=== PATIENT | male | born 1940 | race Caucasian/White ===

== ENCOUNTER 2019-03-04 15:01 | Outpatient (CLI) | payer MEDICARE ==
--- NOTE | 2019-03-04 16:18 | MRI ---
MRI BRAIN NONCONTRAST: 03/04/19 HISTORY: 78-year-old male with G30.1, Alzheimer's disease with late onset. W19.XXXA, fall. G93.40, encephalop athy, unspecified. FINDINGS: The ventricles are normal in size and configuration. There is no restricted diffusion, midline shift or any other mass effect, recent intraaxial hemorrhage, or extraaxial fluid collection. There is a moderate degree of T2-hyperintensities in the cerebral white matter consistent with chronic ischemic white matter changes due to microvascular atherosclerosis. There is diffuse age-appropriate brain par enchymal volume loss. There are bilateral mastoid effusions. IMPRESSION: 1. Moderate chronic ischemic white matter changes, and diffuse involutional changes, not unusual for age. 2. Otherwise negative. 3. Bilateral mastoid effusions. 4. No acute intracranial findings. jn[] POS: [facility]
== END 2019-03-04 15:02 | disposition home or self-care (01) ==
LOC: BICMRI 15:01
PROVIDERS: ATTEND Family Medicine
DX: G30.1 Alzheimer's disease with late onset (principal); G93.40 Encephalopathy, unspecified; I67.82 Cerebral ischemia; G93.6 Cerebral edema; W19.XXXA Unspecified fall, initial encounter
CPT/HCPCS: 70551

== ENCOUNTER 2019-03-25 13:59 | Inpatient (IN) | payer MEDICARE ==
[2019-03-25 15:39] LABS: #Eosinphils 0.1 thou/uL (0.0-0.7); #Lymphocytes 1.4 thou/uL (1.20-3.40); #Monocytes 1.5 thou/uL (0.11-0.59); #Neutrophils 9.7 thou/uL (1.40-6.50); %Basophils 0.1 % (0.0-1.0); %Eosinophils 0.7 % (0.0-10.0); %Lymphocytes 10.6 % (21.0-51.0); %Neutrophils 76.5 % (42.0-75.0); Hemoglobin 14.9 g/dL (14.0-18.0); Mean Corpuscular HGB CONC 33.3 g/dL (32.0-36.0); Mean Corpuscular Hemoglobin 29.8 pg (27.0-31.0); Mean Corpuscular Volume 89.5 fL (78.0-98.0); Mean Platelet Volume 6.9 fL (7.4-10.4); Platelet Count 266 thou/uL (130-400); RBC Distribution Width 12.9 % (11.5-14.5); White Blood Cell (WBC) Count 12.7 thou/uL (4.8-10.8)
[2019-03-25 15:59] LABS: ALT (SGPT) 8 U/L (8-55); AST (SGOT) 11 U/L (5-34); Albumin 3.6 g/dL (3.4-4.8); Alkaline Phosphatase 78 U/L (40-150); Anion Gap 9 mmol/L (10-20); BUN (Urea Nitrogen) 28 mg/dL (8.4-25.7); Bilirubin, Total 0.7 mg/dL (0.2-1.2); Calc. Creatinine Clearance 0 mL/min (70-130); Calcium 9.7 mg/dL (7.8-10.44); Carbon Dioxide 30 mmol/L (23-31); Chloride 104 mmol/L (98-107); Estimated GFR-MDRD 50; Glucose 121 mg/dL (83-110); Potassium 4.2 mmol/L (3.5-5.1); Protein, Total 6.6 g/dL (5.8-8.1); Sodium 139 mmol/L (136-145)
--- NOTE | 2019-03-25 16:00 | ULT ---
Exam: Left lower extremity venous ultrasound with Doppler HISTORY: Swelling. Edema. Ken: None TECHNIQUE: Grayscale, color flow, Doppler imaging and spectral wave form left lower extremity venous system FINDINGS: There is partial compressibility of the common femoral vein. There is lack of compressibility in the femoral vein, popliteal vein. Partial compressibility of the posterior tibial vein. Absence of throughout the right lower extremity deep venous system IMPRESSION: Deep vein thrombus involving the common femoral vein down to the posterior tibial vein..
[2019-03-25] MEDS ORDERED: ISOVUE-370 76%-LOCM 1 ML ONE (16:01)
[2019-03-25 16:40] LABS: INR-International Normal Ratio 1.3; PTT 30.8 SEC (22.9-36.1); Prothrombin Time 16.2 SEC (12.0-14.7)
[2019-03-25] MEDS ORDERED: Enoxaparin Sodium 80 MG/0.8 ML SYRINGE ONE (18:21)
--- NOTE | 2019-03-25 18:23 | CT ---
CT OF ABDOMEN AND PELVIS PERFORMED WITH CONTRAST ENHANCEMENT: 03/25/19 HISTORY: Abdominal pain. The lung bases are clear. The liver and spleen show no focal abnormalities. The spleen is 13.2 cm in length. The pancreas and g allbladder regions are unremarkable. Both the right and left adrenal glands are mildly hyperplastic. Right and left kidneys show some dony ical scarring. No obstruction. No significant periaortic or mesenteric adenopathy. CT OF PELVIS PERFORMED WITH CONTRAST ENHANCEMENT: The appendix is normal. There is no adenopathy, mass or free fluid. Review of osseous structures shows some marked arthritic changes of the spine. IMPRESSION: 1. Mild splenomegaly. 2. Normal appendix. POS: [facility]
[2019-03-25 21:08] VITALS: BMI 26.9
[2019-03-26] MEDS ORDERED: Allopurinol 100 MG TAB PO SCH (09:00)
[2019-03-26] MEDS ORDERED: Enoxaparin Sodium 80 MG/0.8 ML SYRINGE SC SCH (09:00)
[2019-03-26] MEDS: Allopurinol 100 MG TAB PO SCH (09:58)
[2019-03-26] MEDS ORDERED: HYDROcodone/Acetaminophen 5/325 mg Tablet PO PRN (11:07)
[2019-03-26] MEDS ORDERED: Acetaminophen 325 MG TAB PO PRN (11:07)
[2019-03-26] MEDS ORDERED: Senokot S 8.6-50 MG TAB PO PRN (11:07)
[2019-03-26] MEDS ORDERED: Bisacodyl 10 MG SUPP PR PRN (11:07)
[2019-03-26] MEDS ORDERED: Guaifenesin DM 100-10/5 ML UDCUP PO PRN (11:07)
--- NOTE | 2019-03-26 11:58 | HP ---
REASON FOR ADMISSION: Right lower extremity DVT. HISTORY OF PRESENT ILLNESS: The patient gives history of having abdominal pain which is generalized, had right thigh and groin pain, all of which started yesterday evening. He came to emergency room for the same. Prior to this, the patient had gone to see Dr. Alonzo 2 days before for right lower extremity pain and swelling. He was scheduled to get a right lower extremity ultrasound to rule out DVT, but then the swelling and the pain got worse, hence family brought him to emergency room yesterday evening. They moved from [facility] to [place] from last 3 months. The patient states he ambulates well without any assistive devices. No recent history of any travel, although there is some history of thrombophilia which runs in the family, likely Factor V Leiden. No complaints of shortness of breath or chest pain. His abdominal pain is resolved at present. He has had regular bowel movements as well. He currently does not complain of any abdominal pain or right thigh pain. PAST MEDICAL AND SURGICAL HISTORY: Gout, dementia which was recently diagnosed. No prior surgical history per the patient and his at bedside. CURRENT MEDICATION: Allopurinol 100 mg p.o. daily. ALLERGIES: NO KNOWN DRUG ALLERGIES. PERSONAL HISTORY: Does not abuse alcohol or drugs. No history of smoking. FAMILY HISTORY: The patient lives with his . Both parents in their 80s of natural causes. A younger sister, brother, and nephew all have a history of Factor V Leiden deficiency. CODE STATUS: Full. Power of associate attorney is his . REVIEW OF SYSTEMS: CONSTITUTIONAL: Negative for weight loss or gain, ability to conduct usual activities. SKIN: Negative for rash, itching. EYES: Negative for double vision, pain. ENT/MOUTH: Negative for nose bleeding, neck stiffness, pain, tenderness. CARDIOVASCULAR: Negative for palpitations, dyspnea on exertion, orthopnea. RESPIRATORY: Negative for shortness of breath, wheezing, cough, hemoptysis, fever or night sweats. GASTROINTESTINAL: Negative for poor appetite, abdominal pain, heartburn, nausea , vomiting, constipation, or diarrhea. GENITOURINARY: Negative for urgency, frequency, dysuria, nocturia. MUSCULOSKELETAL: Negative for pain, swelling. NEUROLOGIC/PSYCHIATRIC: Negative for anxiety, depression. ALLERGY/IMMUNOLOGIC: Negative for skin rash, bleeding tendency. PHYSICAL EXAMINATION: GENERAL: The patient is an 78-year-old male, who is currently not in any acute distress. VITAL SIGNS: Blood pressure 120/90, pulse 70 per minute, respiratory rate 16 per minute, temperature 99.4 degrees Fahrenheit, saturating 96% on room air. NECK: Supple. No elevated JVD. HEENT: Eyes; extraocular muscles intact. Pupils reacting to light. Oral cavity, mucous membranes are moist. No exudates or congestion. CARDIOVASCULAR SYSTEM: S1 and S2 heard. Regular rhythm. RESPIRATORY SYSTEM: Air entry 1+ bilateral. No rales or rhonchi. ABDOMEN: Soft. Bowel sounds heard. No tenderness, rigidity, or guarding. EXTREMITIES: Right lower extremity is bigger than left lower extremity. There is mild discomfort in the calf area on mild palpation. No ischemic ulcerations or gangrene. Peripheral pulses are 2+ bilateral. CENTRAL NERVOUS SYSTEM: No gross focal deficits noted. The patient is alert and oriented well. PSYCHIATRIC SYSTEM: The patient's mood is euthymic. No hallucinations or delusions. LABORATORY DATA: White count of 12, H and H 14 and 44, platelet count 266. MCV is 89 with 76% neutrophils. PT/INR 16/1.3. PTT 30. BUN 28. Creatinine 1.3. Serum glucose 121. Serum bicarb is 30. IMAGING STUDIES: CT abdomen and pelvis with contrast done shows mild splenomegaly and normal appendix. Ultrasound venous Doppler shows right lower extremity DVT. It is involving common femoral vein down to the posterior tibial vein. CLINICAL IMPRESSION AND PLAN: The patient will be admitted to medical floor for right lower extremity deep vein thrombosis. It is a proximal DVT. We will also obtain a thrombosis panel in view of a family history of Factor V Leiden deficiency. I am not sure if it presents at his age that is 78 years. He has gotten 80 mg of Lovenox yesterday and 1 dose in the morning. We will place him on Eliquis 10 mg twice daily. The patient's is also on Eliquis and they have same insurance and the co-pay is around $40 which they can afford. A consult has been placed for Dr. Campos from ER and we will follow up on that. The patient will be educated about DVT and PE prior to discharge. We will continue his allopurinol as before. Echo 2D Doppler to rule out RV strain. Job ID: [id number] [facility]
[2019-03-26 12:04] LABS: INR-International Normal Ratio 1.3; PTT 38.1 SEC (22.9-36.1); Prothrombin Time 16.6 SEC (12.0-14.7)
[2019-03-26 12:06] LABS: D-Dimer Test 1.96 *mcg/mL (0.27-0.43)
[2019-03-26 16:57] LABS: Cardiolipin IgA Ab 4.1 APL-U/mL (<14 Negative); Cardiolipin IgG Ab 0.9 GPL-U/mL (<10 Negative); EliA APS New Method **** NEW METHOD ****
[2019-03-26] MEDS ORDERED: Lorazepam 2 MG/ML VIAL SLOW IVP PRN (18:43)
[2019-03-26] MEDS: Apixaban 5 MG TAB PO SCH (20:46)
[2019-03-26] MEDS ORDERED: Haloperidol 1 MG TAB PO SCH (21:00)
[2019-03-27 05:10] LABS: INR-International Normal Ratio 1.8; Prothrombin Time 20.3 SEC (12.0-14.7)
[2019-03-27 05:14] LABS: #Eosinphils 0.1 thou/uL (0.0-0.7); #Lymphocytes 1.3 thou/uL (1.20-3.40); #Monocytes 1.4 thou/uL (0.11-0.59); #Neutrophils 8.4 thou/uL (1.40-6.50); %Basophils 0.3 % (0.0-1.0); %Eosinophils 0.7 % (0.0-10.0); %Lymphocytes 11.4 % (21.0-51.0); %Monocytes 12.3 % (0.0-10.0); %Neutrophils 75.3 % (42.0-75.0); Hemoglobin 13.5 g/dL (14.0-18.0); Mean Corpuscular HGB CONC 33.5 g/dL (32.0-36.0); Mean Corpuscular Hemoglobin 29.7 pg (27.0-31.0); Mean Corpuscular Volume 88.7 fL (78.0-98.0); Mean Platelet Volume 7.4 fL (7.4-10.4); Platelet Count 242 thou/uL (130-400); RBC Distribution Width 12.9 % (11.5-14.5); Red Blood Cell (RBC) Count 4.54 mill/uL (4.70-6.10); White Blood Cell (WBC) Count 11.2 thou/uL (4.8-10.8)
[2019-03-27 05:45] LABS: Anion Gap 12 mmol/L (10-20); BUN (Urea Nitrogen) 21 mg/dL (8.4-25.7); Calc. Creatinine Clearance 77 mL/min (70-130); Calcium 9.3 mg/dL (7.8-10.44); Carbon Dioxide 23 mmol/L (23-31); Chloride 108 mmol/L (98-107); Estimated GFR-MDRD 79; Glucose 122 mg/dL (83-110); Potassium 3.8 mmol/L (3.5-5.1); Sodium 139 mmol/L (136-145)
[2019-03-27] MEDS: Apixaban 5 MG TAB PO SCH (09:58)
[2019-03-27] MEDS: Allopurinol 100 MG TAB PO SCH (10:06)
[2019-03-27 11:38] VITALS: BP 128/69; TEMP 98.6
--- NOTE | 2019-03-28 01:37 | DIS ---
DATE OF ADMISSION: 03/25/2019 DATE OF DISCHARGE: 03/27/2019 DISCHARGE DISPOSITION: To home. PRIMARY DISCHARGE DIAGNOSIS: Right lower extremity DVT which is proximal. SECONDARY DISCHARGE DIAGNOSES: 1. Dementia. 2. Gout. PROCEDURES DONE DURING HOSPITALIZATION: Anticardiolipin IgG antibody, IgA antibody, and IgM antibody were all negative. Homocystine 15.36, BUN 21, creatinine 0.9, H and H 13 and 40, platelet count 242, MCV is 88, and white count of 11. Ultrasound venous Doppler showed proximal right lower extremity DVT. CT of the abdomen and pelvis done on the day of admission showed mild splenomegaly, otherwise no abnormalities were noted. DISCHARGE MEDICATION: 1. Eliquis 10 mg twice daily for 6 more days and then 5 mg twice daily for a total of 6 months. 2. Lexapro 5 mg p.o. daily. 3. Zyloprim 100 mg p.o. daily. ALLERGIES: NO KNOWN DRUG ALLERGIES. DISCHARGE PLAN: Patient will follow up with his primary care physician, Dr. Alonzo, in 1 week. BRIEF COURSE DURING HOSPITALIZATION: Patient initially came in with complaints of abdominal pain, right thigh, and groin pain. CT of the abdomen and pelvis done did not reveal any acute abnormalities. Ultrasound venous Doppler of right lower extremity showed extensive DVT. He was placed on Lovenox and Eliquis was initiated. Patient also mentioned that his sister and nephew have factor V Leiden deficiency. In view of this, thrombosis panel was obtained. Please note, patient was given a dose of Lovenox prior to obtaining the sample for thrombosis panel. Patient has tolerated Eliquis well. He is ambulating with PT. He has remained hemodynamically stable and will be shortly discharged home. I have given complete updates to patient's two daughters and as well. Please note, I have seen and examined the patient on the day of discharge. Job ID: [id number] [facility]
[2019-03-29 14:58] LABS: Factor VIII Test 313.9 % ACTIVE (56-157)
[2019-03-29 14:59] LABS: Protein C Activity 67 % (78-152)
[2019-03-30 09:31] LABS: HEX PHOS LA Tube 1 71.8 SEC; Hexagonal Phospholipid Neut 16.8 SEC (0-8.0)
[2019-04-02] MEDS ORDERED: Apixaban 5 MG TAB PO SCH (09:00)
== END 2019-03-27 12:45 | disposition home or self-care (01) | DRG 301 ==
LOC: ERS 13:59 → ERHOLD 18:15 → SURG A 20:43
PROVIDERS: ADMIT Internal Medicine; ATTEND Internal Medicine
DX: I82.411 Acute embolism and thrombosis of right femoral vein (principal); I82.441 Acute embolism and thrombosis of right tibial vein; M10.9 Gout, unspecified; F03.90 Unspecified dementia, unspecified severity, without behavioral disturbance, psychotic disturbance, mood disturbance, and anxiety; Z79.899 Other long term (current) drug therapy; Z84.81 Family history of carrier of genetic disease
CPT/HCPCS: 36415; 74177; 80048; 80053; 81240; 81241; 83090; 84443; 85025; 85240; 85300; 85303; 85305; 85307; 85379; 85598; 85610; 85730; 86147; 87086; 93306; 96372; J1650; J2060; Q9966

== ENCOUNTER 2019-07-23 00:39 | Emergency (ER) | payer MEDICARE ==
[2019-07-23 02:13] LABS: ALT (SGPT) 10 U/L (8-55); AST (SGOT) 13 U/L (5-34); Albumin 3.6 g/dL (3.4-4.8); Alkaline Phosphatase 75 U/L (40-110); Anion Gap 10 mmol/L (10-20); BUN (Urea Nitrogen) 28 mg/dL (8.4-25.7); Bilirubin, Total 0.3 mg/dL (0.2-1.2); Calc. Creatinine Clearance 0 mL/min (70-130); Calcium 9.6 mg/dL (7.8-10.44); Carbon Dioxide 29 mmol/L (23-31); Chloride 108 mmol/L (98-107); Estimated GFR-MDRD 56; Globulin 2.8 g/dL (2.4-3.5); Glucose 117 mg/dL (83-110); Protein, Total 6.4 g/dL (5.8-8.1); Sodium 143 mmol/L (136-145)
[2019-07-23 02:16] LABS: #Basophils 0.1 thou/uL (0.0-0.2); #Eosinphils 0.2 thou/uL (0.0-0.7); #Lymphocytes 1.8 thou/uL (1.20-3.40); #Monocytes 1.1 thou/uL (0.11-0.59); #Neutrophils 7.5 thou/uL (1.40-6.50); %Basophils 0.5 % (0.0-1.0); %Lymphocytes 16.7 % (21.0-51.0); %Monocytes 10.5 % (0.0-10.0); %Neutrophils 70.3 % (42.0-75.0); Hemoglobin 14.8 g/dL (14.0-18.0); Mean Corpuscular HGB CONC 32.9 g/dL (32.0-36.0); Mean Corpuscular Hemoglobin 27.7 pg (27.0-31.0); Mean Corpuscular Volume 84.3 fL (78.0-98.0); Mean Platelet Volume 6.6 fL (7.4-10.4); Platelet Count 437 thou/uL (130-400); RBC Distribution Width 12.9 % (11.5-14.5); Red Blood Cell (RBC) Count 5.34 mill/uL (4.70-6.10); White Blood Cell (WBC) Count 10.6 thou/uL (4.8-10.8)
--- NOTE | 2019-07-23 07:11 | ULT ---
PRELIMINARY REPORT/[facility]/EMERGENCY AFTER HOURS PROCEDURE Receipt of this report by the clinical staff was confirmed with Leda Grier MD by Bceki Heck on Jul 23, 2019 02:11:00 ASSISTANT SPEECH LANGUAGE PATHOLOGIST. Addendum electronically signed by Jennifer Heck on July 23, 2019 2:11:39 AM ASSISTANT SPEECH LANGUAGE PATHOLOGIST EXAM: US Duplex right Lower Extremity Veins. CLINICAL HISTORY: RLE edema HX: RLE DVT COMPARISON: None provided. FINDINGS: DEEP VEINS: Incomplete compression from the proximal femoral vein to the distal popliteal vein with e chogenic intraluminal thrombus and minimal venous flow. Echolucent common femoral vein which demonstrates normal compression, respiratory variation, augmenta tion and color Doppler flow. The visualized calf veins are also patent. SUPERFICIAL VEINS: The visualized greater saphenous vein is patent. SOFT TISSUES: No popliteal fossa cyst or other abnormalities. IMPRESSION: Nonocclusive DVT in the right femoral and popliteal veins. ELECTRONICALLY SIGNED BY: Jennifer Palm M.D. Jul 23, 2019 2:09:17 AM ASSISTANT SPEECH LANGUAGE PATHOLOGIST This report is intended for review by the ordering physician only, in accordance of law. If you recei ve this report in error, please call [facility] at [phone]. FINAL REPORT EMERGENCY AFTER HOURS STUDY ULTRASOUND DOPPLER DUPLEX VENOUS RIGHT LOWER EXTREMITY: DATE: 07/23/2019. HISTORY: An 79-year-old male with right lower extremity edema. TECHNIQUE: Grayscale, color-flow, and spectral analysis, of the right common femoral, profunda femoral, greater saphenous, femoral, popliteal, and posterior tibial, veins. FINDINGS: Agree with preliminary report by [facility]. IMPRESSION: Partial, nonocclusive deep venous thrombosis of right femoral vein and right popliteal vein. Transcribed Date/Time: 07/23/2019 8:52 AM
== END 2019-07-23 02:40 | disposition home or self-care (01) ==
LOC: ERS 00:39
DX: M79.89 Other specified soft tissue disorders (principal); G30.9 Alzheimer's disease, unspecified; F02.80 Dementia in other diseases classified elsewhere, unspecified severity, without behavioral disturbance, psychotic disturbance, mood disturbance, and anxiety; M10.9 Gout, unspecified; Z79.899 Other long term (current) drug therapy; Z79.01 Long term (current) use of anticoagulants
CPT/HCPCS: 36415; 80053; 85025

== ENCOUNTER 2019-07-28 12:24 | Outpatient (CLI) | payer MEDICARE ==
--- NOTE | 2019-07-28 13:11 | RAD ---
Exam: XR Knee Rt 3 View HISTORY: Acute right knee pain. COMPARISON: None FINDINGS: Tricompartment osteophytosis is present. There is narrowing of the medial joint compartment with slig ht varus angulation of the knee joint. There is minimal subchondral sclerosis involving the medial joint compartment. No acute fracture, dislocation, or other acute osseous abnormality is identified. A small joint effusion is present in the suprapatellar location. IMPRESSION: 1. 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 2. Small suprapatellar joint effusion.
== END 2019-07-28 12:25 | disposition home or self-care (01) ==
LOC: BICRAD 12:24
PROVIDERS: ATTEND Family Medicine
DX: M25.561 Pain in right knee (principal); M17.11 Unilateral primary osteoarthritis, right knee; M25.461 Effusion, right knee

== ENCOUNTER 2019-10-04 12:50 | Outpatient (CLI) | payer MEDICARE ==
--- NOTE | 2019-10-04 13:45 | RAD ---
EXAM: 3 views of the left foot HISTORY: Foot pain COMPARISON: None FINDINGS: 3 views of the left foot shows no evidence of acute fracture or dislocation. Moderate first metatarsal head hyperplasia and hallux valgus deformity of the great toe are seen. No soft tissue swelling is seen. No degenerative changes are present. IMPRESSION: Degenerative changes of the great toe without evidence of acute osseous abnormality.
== END 2019-10-04 12:51 | disposition home or self-care (01) ==
LOC: BICRAD 12:50
PROVIDERS: ATTEND Family Medicine
DX: M79.675 Pain in left toe(s) (principal); M19.072 Primary osteoarthritis, left ankle and foot
CPT/HCPCS: 80053; 84550; 85025

== ENCOUNTER 2019-12-20 11:22 | Emergency (ER) | payer MEDICARE ==
[2019-12-20 12:10] LABS: #Basophils 0.1 thou/uL (0.0-0.2); #Eosinphils 0.2 thou/uL (0.0-0.7); #Lymphocytes 1.5 thou/uL (1.20-3.40); #Monocytes 1.3 thou/uL (0.11-0.59); %Basophils 0.7 % (0.0-1.0); %Eosinophils 1.9 % (0.0-10.0); %Lymphocytes 12.2 % (21.0-51.0); %Monocytes 10.5 % (0.0-10.0); %Neutrophils 74.7 % (42.0-75.0); Hemoglobin 15.7 g/dL (14.0-18.0); Mean Corpuscular HGB CONC 31.9 g/dL (32.0-36.0); Mean Corpuscular Hemoglobin 26.3 pg (27.0-31.0); Mean Corpuscular Volume 82.4 fL (78.0-98.0); Platelet Count 364 thou/uL (130-400); RBC Distribution Width 14.2 % (11.5-14.5); Red Blood Cell (RBC) Count 5.97 mill/uL (4.70-6.10); White Blood Cell (WBC) Count 12.1 thou/uL (4.8-10.8)
[2019-12-20 12:19] LABS: INR-International Normal Ratio 1.3; Prothrombin Time 16.3 sec (12.0-14.7)
--- NOTE | 2019-12-20 12:29 | CT ---
CT BRAIN NONCONTRAST: DATE: 12/20/2019 HISTORY: 79-year-old male status post acute head trauma due to fall FINDINGS: There is no evidence of acute intra-axial or extra-axial hemorrhage. There is no midline shift or any other mass effect. There is no extra-axial fluid collection. There is no evidence of obstructive hydrocephalus. Calvarium is intact. There is diffuse brain parenchymal volume loss. There are low att enuation areas in the white matter. These are nonspecific, but in a patient of this age, they are probably chronic ischemic white matter changes due to microvascular atherosclerosis. IMPRESSION: 1) No acute intracranial findings. 2) involutional changes and chronic ischemic white matter changes.
[2019-12-20 12:38] LABS: ALT (SGPT) 10 U/L (8-55); AST (SGOT) 16 U/L (5-34); Albumin 3.5 g/dL (3.4-4.8); Alkaline Phosphatase 88 U/L (40-110); Anion Gap 13 mmol/L (10-20); BUN (Urea Nitrogen) 34 mg/dL (8.4-25.7); Bilirubin, Total 1.1 mg/dL (0.2-1.2); Calc. Creatinine Clearance 0 mL/min (70-130); Calcium 9.4 mg/dL (7.8-10.44); Carbon Dioxide 22 mmol/L (23-31); Chloride 109 mmol/L (98-107); Estimated GFR-MDRD 58; Globulin 2.9 g/dL (2.4-3.5); Glucose 116 mg/dL (83-110); Magnesium 2.2 mg/dL (1.6-2.6); Potassium 4.2 mmol/L (3.5-5.1); Protein, Total 6.4 g/dL (5.8-8.1); Sodium 140 mmol/L (136-145)
--- NOTE | 2019-12-20 12:59 | RAD ---
EXAM: CHEST ONE VIEW HISTORY: Right hip pain after fall one day ago. Syncope. COMPARISON: None FINDINGS: Cardiac silhouette is magnified by projection. Pulmonary vasculature is at the upper limits of normal . Atelectasis is present at the right lung base. Lungs are otherwise clear. The osseous structures are intact. IMPRESSION: No acute cardiopulmonary process.
--- NOTE | 2019-12-20 13:01 | RAD ---
Radiograph right hip 2 views: HISTORY: 79-year-old male with posttraumatic right hip pain after fall FINDINGS: Femoral head contour is maintained. Right hip joint space is maintained. No subcapital osteophytes. D NATALIO at right SI joint. No fracture identified. IMPRESSION: 1. No fracture identified. 2. Osteoarthrosis of right sacroiliac joint. 3. If symptoms do not improve in the next 5-10 days, the most sensitive modality to evaluate for occu lt hip fracture would be a noncontrast MRI of the hip and pelvis.
[2019-12-20 13:22] LABS: Bilirubin Negative (Negative); Blood, Urine Negative (Negative); Clarity Clear (Clear); Glucose, Urine (Dipstick) Normal (Negative); Leukocyte Negative Leu/uL (Negative); Nitrite Negative (Negative); Protein, Urine (Dipstick) 10 mg/dL (Neg-Trace); Urobilinogen Normal mg/dL (Less than 2)
== END 2019-12-20 14:35 | disposition home or self-care (01) ==
LOC: ERS 11:22
DX: E86.0 Dehydration (principal); R29.6 Repeated falls; M10.9 Gout, unspecified; Z86.73 Personal history of transient ischemic attack (TIA), and cerebral infarction without residual deficits; Z79.899 Other long term (current) drug therapy; W19.XXXA Unspecified fall, initial encounter
CPT/HCPCS: 36415; 51701; 70450; 71045; 80053; 81003; 83605; 83735; 83880; 84484; 85025; 85610; 87086; 93005; 96360